=== PATIENT | male | born 1960 | race African-American/Black ===

== ENCOUNTER 2017-06-25 11:42 | Emergency (ER) | payer OTHER, MEDICARE ==
[~2017-06-25] VITALS: Ht 170.2 cm; Wt 77.1 kg
== END 2017-06-25 13:08 | disposition home or self-care (01) ==
LOC: CED 11:42 → CFTX 11:42
DX: S61.411A Laceration without foreign body of right hand, initial encounter (principal); J45.909 Unspecified asthma, uncomplicated; Z88.1 Allergy status to other antibiotic agents; W25.XXXA Contact with sharp glass, initial encounter; Y92.009 Unspecified place in unspecified non-institutional (private) residence as the place of occurrence of the external cause
CPT/HCPCS: 12001; 99283